=== PATIENT | female | born 1990 | race Caucasian/White ===

== ENCOUNTER 2023-03-16 01:33 | Emergency (ER) | payer MEDICAID, SELFPAY ==
[2023-03-16 01:38] VITALS: BP 112/74; PULSE 91; RESP 18; TEMP 36.8; O2SAT 96; BMI 27.4
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
[2023-03-16] MEDS: KETOROLAC 30 MG/ML inj IM (01:44)
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
== END 2023-03-16 02:06 ==
LOC: ED 01:53
PROVIDERS: Emergency Provider Student in an Organized Health Care Education/Training Program
DX: M54.2 Cervicalgia (principal)
CPT/HCPCS: 96372; 99282; J1885